=== PATIENT | male | born 1995 | race American Indian/Alaskan Native ===

== ENCOUNTER 2017-08-20 15:05 | Emergency (ER) | payer MEDICAID ==
[2017-08-20] MEDS ORDERED: Diphtheria,Pertussis(Acell),Tetanus Vaccine 0.5 ML SDV IM ONE (15:29)
[2017-08-20] MEDS ORDERED: Lidocaine 1% with EPINEPHrine 1:100,000 20 ML MDV INJECT ONE (15:29)
--- NOTE | 2017-08-20 15:44 | EDM.PDOC ---
ED HPI GENERAL MEDICAL PROBLEM - General Chief Complaint: Laceration Stated Complaint: [facility] Time Seen by Provider: 08/20/17 15:16 Source of Information: Reports: Patient History Limitations: Reports: No Limitations - History of Present Illness INITIAL COMMENTS - FREE TEXT/NARRATIVE: Patient is a 21-year-old male who presents ED via ambulance complaining of lacerations to the medial aspect of the right left forearm. This was self- induced utilizing a knife. Patient had been consuming alcohol quite heavily last night and does not recall cutting himself. States he consumed approx 12 pack of budlight. Denies any recreational drug use. Has no reason to why he did this. He does not have any suicidal/homicidal ideations or plans in place to commit suicide. He's never done this before in the past. Of note he does not drink alcohol on a daily basis states it is sporadic when he consumes alcohol. He was consuming alcohol with his girlfriend and notes that they had been arguing. Headache Pain Score (Numeric/FACES): 6 - Related Data Allergies Allergy/AdvReac Type Severity Reaction Status Date / Time amoxicillin Allergy Cannot Verified 08/20/17 15:11 Remember Penicillins Allergy Cannot Verified 08/20/17 15:11 Remember Home Meds: Home Meds . [No Known Home Meds] 08/20/17 [History] Past Medical History - Past Health History Medical/Surgical History: Denies Medical/Surgical History Social & Family History - Tobacco Use Smoking Status *Q: Never Smoker - Caffeine Use Caffeine Use: Reports: Soda - Recreational Drug Use Recreational Drug Use: No ED ROS GENERAL - Review of Systems Review Of Systems: See Below Constitutional: Denies: Fever, Chills Respiratory: Denies: Shortness of Breath, Cough, Sputum Cardiovascular: Denies: Chest Pain, Dyspnea on Exertion, Palpitations GI/Abdominal: Denies: Abdominal Pain, Nausea, Vomiting Musculoskeletal: Reports: Arm Pain (Localized to laceration sites) Neurological: Denies: Dizziness, Headache, Numbness, Tingling ED EXAM, SKIN/RASH Exam: See Below Exam Limited By: No Limitations General Appearance: Alert, WD/WN, No Apparent Distress Eye Exam: Bilateral Eye: EOMI, PERRL Ears: Hearing Grossly Normal Nose: Normal Inspection Throat/Mouth: Normal Voice, No Airway Compromise Neck: Normal Inspection, Supple Respiratory/Chest: No Respiratory Distress, Lungs Clear, Normal Breath Sounds, No Accessory Muscle Use Cardiovascular: Normal Peripheral Pulses, Regular Rate, Rhythm Peripheral Pulses: 2+: Radial (L), Radial (R) Extremities: Other (2 subcutaneous lacerations to the right medial forearm, bleeding controlled, length is approximately 4 cm deep. Noncontaminated. No bleeding present. Left forearm: Single subcutaneous laceration measuring approximately 4 cm to the medial aspect. Bleeding controlled. Dried blood present. No sensory/motor deficits distally.) Neurological: Alert, Oriented, CN II-XII Intact, No Motor/Sensory Deficits Psychiatric: Normal Affect, Normal Mood Skin: Warm, Dry, Normal Color ED SKIN PROCEDURES - Laceration/Wound Repair Left Medial Arm Lac/Wound length In cm: 5 Appearance: Superficial, Clean Distal NVT: Neuro & Vascular Intact Anesthetic Type: Local Local Anesthesia - Lidocaine (Xylocaine): 1% Plain Local Anesthetic Volume: 5cc Skin Prep: Chlorhexidine (Hibiciens), Saline, Sterile Drape Exploration/Debridement/Repair: Wound Explored, In a Bloodless Field, Explored to Base, No Foreign Material Found, Multiple Flaps Aligned Closed with: Sutures Suture Size: 4-0 # of Sutures: 8 Suture Type: Prolene, Interrupted, Simple Drain Placement: No Sterile Dressing Applied: Nurse Tetanus Status Addressed: Yes Complications: No Right Arm Lac/Wound length In cm: 5 Appearance: Subcutaneous, Clean Distal NVT: Neuro & Vascular Intact Anesthetic Type: Local Local Anesthesia - Lidocaine (Xylocaine): 1% Plain Local Anesthetic Volume: 5cc Skin Prep: Chlorhexidine (Hibiciens), Saline, Sterile Drape Exploration/Debridement/Repair: Wound Explored, In a Bloodless Field, Explored to Base, No Foreign Material Found Closed with: Sutures Suture Size: 4-0 # of Sutures: 7 Suture Type: Prolene, Interrupted, Simple Drain Placement: No Sterile Dressing Applied: Nurse Tetanus Status Addressed: Yes Complications: No Course - Vital Signs Last Recorded V/S: Last Vital Signs Temp 97.9 F 08/20/17 15:08 Pulse 63 08/20/17 15:08 Resp 16 08/20/17 15:08 BP 114/67 08/20/17 15:08 Pulse Ox 97 08/20/17 15:08 - Orders/Labs/Meds Orders: Active Orders 24 hr Category Date Time Status Vaccines to be Administered [RC] PER UNIT ROUTINE Care 08/20/17 15:29 Active Labs: Laboratory Tests 08/20/17 08/20/17 08/20/17 Range/Units 15:40 15:40 16:27 WBC 9.37 H (4.23-9.07) K/mm3 RBC 4.95 (4.63-6.08) M/mm3 Hgb 14.3 (13.7-17.5) gm/L Hct 42.2 (40.1-51.0) % MCV 85.3 (79.0-92.2) fl MCH 28.9 (25.7-32.2) pg MCHC 33.9 (32.2-35.5) g/dl RDW Std Deviation 39.1 (35.1-43.9) fL Plt Count 253 (163-337) K/mm3 MPV 10.6 (9.4-12.3) fl Neut % (Auto) 70.5 H (34.0-67.9) % Lymph % (Auto) 17.3 L (21.8-53.1) % Ashley % (Auto) 9.1 (5.3-12.2) % Eos % (Auto) 2.6 (0.8-7.0) Baso % (Auto) 0.4 (0.1-1.2) % Neut # (Auto) 6.61 H (1.78-5.38) K/mm3 Lymph # (Auto) 1.62 (1.32-3.57) K/mm3 Ashley # (Auto) 0.85 H (0.30-0.82) K/mm3 Eos # (Auto) 0.24 (0.04-0.54) K/mm3 Baso # (Auto) 0.04 (0.01-0.08) K/mm3 Sodium 146 H (136-145) mEq/L Potassium 4.4 (3.5-5.1) mEq/L Chloride 110 H (98-107) mEq/L Carbon Dioxide 23 (21-32) mEq/L Anion Gap 17.4 H (5-15) BUN 14 (7-18) mg/dL Creatinine 0.9 (0.7-1.3) mg/dL Est Cr Clr Drug Dosing 131.28 mL/min Estimated GFR (MDRD) > 60 (>60) mL/min BUN/Creatinine Ratio 15.6 (14-18) Glucose 77 (74-106) mg/dL Calcium 8.7 (8.5-10.1) mg/dL Total Bilirubin 0.7 (0.2-1.0) mg/dL AST 30 (15-37) U/L ALT 24 (16-63) U/L Alkaline Phosphatase 77 (46-116) U/L Total Protein 7.5 (6.4-8.2) g/dl Albumin 4.2 (3.4-5.0) g/dl Globulin 3.3 gm/dL Albumin/Globulin Ratio 1.3 (1-2) TSH 3rd Generation 0.452 L (0.516-4.13) uIU/mL Urine Color (Yellow) Urine Appearance (Clear) Urine pH (5.0-8.0) Ur Specific Willis (1.005-1.030) Urine Protein (Negative) Urine Glucose (UA) (Negative) Urine Ketones (Negative) Urine Occult Blood (Negative) Urine Nitrite (Negative) Urine Bilirubin (Negative) Urine Urobilinogen (0.2-1.0) Ur Leukocyte Esterase (Negative) Urine RBC (0-5) /hpf Urine WBC (0-5) /hpf Ur Epithelial Cells (0-5) /hpf Urine Bacteria (FEW) /hpf Urine Mucus (FEW) /hpf Urine Opiates Screen Negative (NEGATIVE) Ur Buprenorphine Scrn Negative (NEGATIVE) Ur Oxycodone Screen Negative (NEGATIVE) Urine Methadone Screen Negative (NEGATIVE) Ur Propoxyphene Screen Negative (NEGATIVE) Ur Barbiturates Screen Negative (NEGATIVE) Ur Tricyclics Screen Negative (NEGATIVE) Ur Phencyclidine Scrn Negative (NEGATIVE) Ur Amphetamine Screen Negative (NEGATIVE) U Methamphetamines Scrn Negative (NEGATIVE) U Benzodiazepines Scrn Negative (NEGATIVE) U Cocaine Metab Screen Negative (NEGATIVE) U Marijuana (THC) Screen Negative (NEGATIVE) Ethyl Alcohol 0.04 (0.00) gm% 08/20/17 Range/Units 16:27 WBC (4.23-9.07) K/mm3 RBC (4.63-6.08) M/mm3 Hgb (13.7-17.5) gm/L Hct (40.1-51.0) % MCV (79.0-92.2) fl MCH (25.7-32.2) pg MCHC (32.2-35.5) g/dl RDW Std Deviation (35.1-43.9) fL Plt Count (163-337) K/mm3 MPV (9.4-12.3) fl Neut % (Auto) (34.0-67.9) % Lymph % (Auto) (21.8-53.1) % Ashley % (Auto) (5.3-12.2) % Eos % (Auto) (0.8-7.0) Baso % (Auto) (0.1-1.2) % Neut # (Auto) (1.78-5.38) K/mm3 Lymph # (Auto) (1.32-3.57) K/mm3 Ashley # (Auto) (0.30-0.82) K/mm3 Eos # (Auto) (0.04-0.54) K/mm3 Baso # (Auto) (0.01-0.08) K/mm3 Sodium (136-145) mEq/L Potassium (3.5-5.1) mEq/L Chloride (98-107) mEq/L Carbon Dioxide (21-32) mEq/L Anion Gap (5-15) BUN (7-18) mg/dL Creatinine (0.7-1.3) mg/dL Est Cr Clr Drug Dosing mL/min Estimated GFR (MDRD) (>60) mL/min BUN/Creatinine Ratio (14-18) Glucose (74-106) mg/dL Calcium (8.5-10.1) mg/dL Total Bilirubin (0.2-1.0) mg/dL AST (15-37) U/L ALT (16-63) U/L Alkaline Phosphatase (46-116) U/L Total Protein (6.4-8.2) g/dl Albumin (3.4-5.0) g/dl Globulin gm/dL Albumin/Globulin Ratio (1-2) TSH 3rd Generation (0.516-4.13) uIU/mL Urine Color Yellow (Yellow) Urine Appearance Clear (Clear) Urine pH 6.0 (5.0-8.0) Ur Specific Willis 1.025 (1.005-1.030) Urine Protein Negative (Negative) Urine Glucose (UA) Negative (Negative) Urine Ketones 1+ H (Negative) Urine Occult Blood Negative (Negative) Urine Nitrite Negative (Negative) Urine Bilirubin Negative (Negative) Urine Urobilinogen 0.2 (0.2-1.0) Ur Leukocyte Esterase Negative (Negative) Urine RBC 0-5 (0-5) /hpf Urine WBC 0-5 (0-5) /hpf Ur Epithelial Cells 0-5 (0-5) /hpf Urine Bacteria Not seen (FEW) /hpf Urine Mucus Few (FEW) /hpf Urine Opiates Screen (NEGATIVE) Ur Buprenorphine Scrn (NEGATIVE) Ur Oxycodone Screen (NEGATIVE) Urine Methadone Screen (NEGATIVE) Ur Propoxyphene Screen (NEGATIVE) Ur Barbiturates Screen (NEGATIVE) Ur Tricyclics Screen (NEGATIVE) Ur Phencyclidine Scrn (NEGATIVE) Ur Amphetamine Screen (NEGATIVE) U Methamphetamines Scrn (NEGATIVE) U Benzodiazepines Scrn (NEGATIVE) U Cocaine Metab Screen (NEGATIVE) U Marijuana (THC) Screen (NEGATIVE) Ethyl Alcohol (0.00) gm% Meds: Medications Discontinued Medications Generic Name Dose Route Start Last Admin Trade Name Tabatha PRN Reason Stop Dose Admin Diphtheria/Tetanus/Acell Pertussis 0.5 ml 08/20/17 15:29 08/20/17 15:48 Adacel IM 08/20/17 15:30 0.5 ml .ONCE ONE Administration Lidocaine/Epinephrine 20 ml 08/20/17 15:29 08/20/17 16:22 Xylocaine 1% With Epinephrine 1:100,000 INJECT 08/20/17 15:30 20 ml ONETIME ONE Administration - Re-Assessments/Exams Free Text/Narrative Re-Assessment/Exam: Unclear why patient cut himself. He was per patient blacked out drunk. Currently has no suicidal or homicidal ideations. He has no plan in place. No prior history of suicide attempt. He is alert and oriented answering all questions appropriately. Will obtain basic labs including a CBC, chem 14, urine drug tox, serum EtOH, TSH , UA . In addition ordered lidocaine with 1% epi and also Adacel 0.5 mL IM to update his tetanus. Labs reviewed: White blood cell count 9.37, hemoglobin 14.3, platelet count 253 , sodium 146, potassium 4.4, AG 17.4, CR 0.9, glucose 77, LFTs within normal limits, TSH is 0.452, UA clean, urine drug tox negative. Serum EtOH 0.04. 10/15/17 17:39 Lacerations to the left and right forearm closed with simple sutures. Laceration proximal to the right wrist closed with Steri-Strips no sutures required. Discharge instructions as documented. Departure - Departure Time of Disposition: 17:57 Disposition: Home, Self-Care 01 Condition: Good Clinical Impression: Forearm laceration Qualifiers: Encounter type: initial encounter Laterality: unspecified laterality Qualified Code(s): S51.819A - Laceration without foreign body of unspecified forearm, initial encounter - Discharge Information Instructions: Laceration Care, Adult, [id number], Stitches, [place], or Adhesive Wound Closure, [id number] Referrals: PCP,None [Primary Care Provider] - Forms: ED Department Discharge Additional Instructions: Cleanse sites twice daily with soap and water, pat dry, reapply Triple Antibiotic ointment, and dressing. Keep area clean and dry. Follow-up with a provider in 10 days at [facility] for suture removal. Return to ED for any worsening symptoms. Refrain from consuming alcohol and cutting yourself. Suggest establishing care at [facility] in [place] as well. - My Orders Last 24 Hours: My Active Orders 08/20/17 15:29 Vaccines to be Administered [RC] PER UNIT ROUTINE - Assessment/Plan Last 24 Hours: My Active Orders 08/20/17 15:29 Vaccines to be Administered [RC] PER UNIT ROUTINE
== END 2017-08-20 18:12 | disposition home or self-care (01) ==
LOC: JD.ED 15:05
DX: S51.811A Laceration without foreign body of right forearm, initial encounter (principal); Z23 Encounter for immunization; Z88.1 Allergy status to other antibiotic agents; Z88.0 Allergy status to penicillin; W26.0XXA Contact with knife, initial encounter
CPT/HCPCS: 12004; 36415; 80053; 80306; 81001; 84443; 85025; 90471; 90715; 99284; G0480; 12002; 99282-25

== ENCOUNTER 2017-10-28 18:17 | Emergency (ER) | payer MEDICAID ==
--- NOTE | 2017-10-28 18:32 | EDM.PDOC ---
ED HPI GENERAL MEDICAL PROBLEM - General Chief Complaint: General Stated Complaint: ABCESS TOOTH Time Seen by Provider: 10/28/17 18:32 Source of Information: Reports: Patient History Limitations: Reports: No Limitations - History of Present Illness INITIAL COMMENTS - FREE TEXT/NARRATIVE: Patient is a 22-year-old male presents ED complaining of pain to the right lower wisdom tooth is coming in. Pain started a few days ago as risk getting worse. There is concern of possible infection present. Patient does admit to not brushing his teeth on a regular basis. Does not see a dentist on a regular basis as well. Denies any increased swelling to his gum line, nausea/vomiting, fever, difficulty swallowing,or any additional complaint. Treatments TRANSPORTATION SECURITY SCREENER: Reports: Acetaminophen, NSAIDS Tooth/Teeth Pain Score (Numeric/FACES): 3 - Related Data Allergies Allergy/AdvReac Type Severity Reaction Status Date / Time amoxicillin Allergy Cannot Verified 10/28/17 18:24 Remember Penicillins Allergy Cannot Verified 10/28/17 18:24 Remember seafoo Allergy Airway Uncoded 10/28/17 18:24 Tightness Home Meds: Home Meds . [No Known Home Meds] 08/20/17 [History] Past Medical History - Past Health History Medical/Surgical History: Denies Medical/Surgical History Social & Family History - Tobacco Use Smoking Status *Q: Never Smoker - Caffeine Use Caffeine Use: Reports: Soda - Recreational Drug Use Recreational Drug Use: No ED ROS GENERAL - Review of Systems Review Of Systems: ROS reveals no pertinent complaints other than HPI. ED EXAM, GENERAL - Physical Exam Exam: See Below Exam Limited By: No Limitations General Appearance: Alert, WD/WN, No Apparent Distress Ears: Hearing Grossly Normal Nose: Normal Inspection Throat/Mouth: Normal Voice, No Airway Compromise, Other (tenderness noted to the right lower wasn't too that's breaking through the skin. No swelling to the gumline noted. No swelling to the cheek noted. Pain is localized to the affected tooth. Of note patient does have poor dental hygiene with plaque present 2 most teeth.) Neck: Normal Inspection Respiratory/Chest: No Respiratory Distress, No Accessory Muscle Use Cardiovascular: Normal Peripheral Pulses, Regular Rate, Rhythm Neurological: Alert, Oriented, CN II-XII Intact, Normal Cognition, No Motor/ Sensory Deficits Psychiatric: Normal Affect, Normal Mood Skin Exam: Warm, Dry, Intact, Normal Color Course - Vital Signs Last Recorded V/S: Last Vital Signs Temp 97.8 F 10/28/17 18:25 Pulse 95 10/28/17 18:25 Resp 16 10/28/17 18:25 BP 120/72 10/28/17 18:25 Pulse Ox 99 10/28/17 18:25 - Re-Assessments/Exams Free Text/Narrative Re-Assessment/Exam: performed an inferior alveolar dental block with 0.5% bupivacaine with immediate relief of pain. We'll not prescribe any antibiotics at this time. Do not believe an abscess is present. Will have the patient follow-up with a dentist to determine definitive treatment required. Suspect he will have to see A oral surgeon to have the wasn't tooth removed. Discharge instructions as Dr. Molina - Departure Time of Disposition: 18:48 Disposition: Home, Self-Care 01 Condition: Good Clinical Impression: Tooth pain with chewing - Discharge Information Referrals: PCP,None [Primary Care Provider] - Forms: ED Department Discharge Additional Instructions: Take Tylenol 650 mg every 6 hours and ibuprofen 600 mg every 6 hours in alternating fashion for pain. Do not chew on the affected side. Can use over-the -counter oral gel as needed for discomfort. Call and make an appointment with a dentist to determine definitive treatment. Suspect you will have to be seen by a oral surgeon to have that wisdom tooth removed. Return back to the ED as needed for any new or worsening symptoms. BRUSH AND FLOSS YOUR TEETH TWICE DAILY TO PREVENT FURTHER DENTAL DECAY.
== END 2017-10-28 18:54 | disposition home or self-care (01) ==
LOC: JD.ED 18:17
DX: K08.89 Other specified disorders of teeth and supporting structures (principal); Z88.1 Allergy status to other antibiotic agents; Z88.0 Allergy status to penicillin; Z91.040 Latex allergy status
CPT/HCPCS: 99282; 99283

== ENCOUNTER 2018-11-12 00:19 | Emergency (ER) | payer MEDICAID ==
--- NOTE | 2018-11-12 00:39 | EDM.PDOC ---
ED HPI GENERAL MEDICAL PROBLEM - General Chief Complaint: Lower Extremity Injury/Pain Stated Complaint: RIGHT TOE INJURY PURPLE Time Seen by Provider: 11/12/18 00:35 - History of Present Illness INITIAL COMMENTS - FREE TEXT/NARRATIVE: 23-year-old male presents emergency room with a right toe injury. Patient dropped an Xbox control on second toe of his right foot. He has pain and swelling in his toes started to turn purple. He denies numbness or tingling has some mild discomfort when he ambulates. Patient denies any other injuries. He is up-to-date on his tetanus, last tetanus was 2 years ago. Right 4-Ring toe Pain Score (Numeric/FACES): 3 - Related Data Allergies Allergy/AdvReac Type Severity Reaction Status Date / Time amoxicillin Allergy Cannot Verified 11/12/18 00:32 Remember Penicillins Allergy Cannot Verified 11/12/18 00:32 Remember seafoo Allergy Airway Uncoded 11/12/18 00:32 Tightness Home Meds: Home Meds . [No Known Home Meds] 08/20/17 [History] Past Medical History - Past Health History Medical/Surgical History: Denies Medical/Surgical History Social & Family History - Family History Family Medical History: Noncontributory - Tobacco Use Smoking Status *Q: Current Some Day Smoker Years of Tobacco use: 6 Packs/Tins Daily: 0 - Caffeine Use Caffeine Use: Reports: Coffee, Soda, Tea - Recreational Drug Use Recreational Drug Use: No Review of Systems - Review of Systems Review Of Systems: See Below Constitutional: Reports: No Symptoms Respiratory: Reports: No Symptoms Cardiovascular: Reports: No Symptoms GI/Abdominal: Reports: No Symptoms ED EXAM, GENERAL - Physical Exam Exam: See Below Exam Limited By: No Limitations General Appearance: Alert, No Apparent Distress Respiratory/Chest: No Respiratory Distress, Lungs Clear, Normal Breath Sounds Cardiovascular: Regular Rate, Rhythm, No Edema, No Murmur Extremities: Other (Semination his right foot reveals a fairly normal-looking foot except the distal end of his second toe which is swollen slightly developing ecchymotic changes and he has a very superficial laceration over the dorsum this is a superficial skin flap with no through dermal extension. Neurovascular status of the toe is otherwise unremarkable it is tender) Course - Vital Signs Last Recorded V/S: Last Vital Signs Temp 37.2 C 11/12/18 00:25 Pulse 102 H 11/12/18 00:25 Resp 18 11/12/18 00:25 BP 119/69 11/12/18 00:25 Pulse Ox 94 L 11/12/18 00:25 - Orders/Labs/Meds Orders: Active Orders 24 hr Category Date Time Status Toes Second Digit Rt T6 [CR] Stat Exams 11/12/18 00:45 Taken Meds: Medications Discontinued Medications Generic Name Dose Route Start Last Admin Trade Name Tabatha PRN Reason Stop Dose Admin Acetaminophen 650 mg 11/12/18 00:44 Tylenol PO 11/12/18 00:45 ONETIME ONE - Re-Assessments/Exams Free Text/Narrative Re-Assessment/Exam: 11/12/18 01:15 X-ray examination of the toe is unremarkable for fracture dislocation. The patient will nonetheless have this toe tawanna taped to his great toe for comfort put some bacitracin over the very superficial laceration and a bandage over this Departure - Departure Time of Disposition: 01:16 Disposition: Home, Self-Care 01 Clinical Impression: Contusion of second toe of right foot - Discharge Information Referrals: PCP,None [Primary Care Provider] - Forms: ED Department Discharge Additional Instructions: Return to the emergency room with any questions problems worsening symptoms. Follow-up with your regular doctor as needed. Tylenol and/or Motrin as needed for discomfort. Tawanna tape your toe to the big toe as needed for comfort. - My Orders Last 24 Hours: My Active Orders 11/12/18 00:45 Toes Second Digit Rt T6 [CR] Stat - Assessment/Plan Last 24 Hours: My Active Orders 11/12/18 00:45 Toes Second Digit Rt T6 [CR] Stat
[2018-11-12] MEDS ORDERED: Acetaminophen Soln 650 MG/20.3 ML UD Cup PO ONE (00:44)
--- NOTE | 2018-11-12 06:38 | CR ---
Right second toe: Three views centered to the right second toe were obtained. Joint spaces are preserved. No fracture, dislocation or other bony abnormality is seen. Impression: 1. No abnormality is appreciated on right second toe study. Diagnostic code #1
== END 2018-11-12 01:26 | disposition home or self-care (01) ==
LOC: JD.ED 00:19
DX: S90.121A Contusion of right lesser toe(s) without damage to nail, initial encounter (principal); F17.200 Nicotine dependence, unspecified, uncomplicated; Z88.0 Allergy status to penicillin; Z88.1 Allergy status to other antibiotic agents; Z91.013 Allergy to seafood; W20.8XXA Other cause of strike by thrown, projected or falling object, initial encounter
CPT/HCPCS: 73660; 99283; A9270; 99282

== ENCOUNTER 2020-12-30 08:33 | Emergency (ER) | payer SELFPAY ==
--- NOTE | 2020-12-30 09:08 | EDM.PDOC ---
ED HPI GENERAL MEDICAL PROBLEM - General Chief Complaint: General Stated Complaint: [facility] Time Seen by Provider: 12/30/20 08:38 Source of Information: Reports: Patient, RN Notes Reviewed History Limitations: Reports: No Limitations - History of Present Illness INITIAL COMMENTS - FREE TEXT/NARRATIVE: Patient is a 25-year-old male presenting to the emergency department with complaints of left chest wall pain after sustaining a fall at home. States that he recently got up for 2-week stretch at work. He drank 5 beers this morning upon getting home. He was changing out the laundry and slipped on a dryer sheet landing on his left side. Complains of pain proximally 2 inches below his left nipple. Denies any significant shortness of breath, but states it hurts for him to take a deep breath or cough. Left Trunk Pain Score (Numeric/FACES): 5 - Related Data Allergies Allergy/AdvReac Type Severity Reaction Status Date / Time amoxicillin Allergy Cannot Verified 12/30/20 08:40 Remember Penicillins Allergy Cannot Verified 12/30/20 08:40 Remember seafoo Allergy Airway Uncoded 11/12/18 00:32 Tightness Home Meds: Home Meds . [No Known Home Meds] 08/20/17 [History] Past Medical History - Past Health History Medical/Surgical History: Denies Medical/Surgical History HEENT History: Reports: Impaired Vision Cardiovascular History: Reports: None Respiratory History: Reports: Bronchitis, Recurrent Gastrointestinal History: Reports: None Genitourinary History: Reports: None Musculoskeletal History: Reports: None Neurological History: Reports: Concussion Psychiatric History: Reports: None Endocrine/Metabolic History: Reports: None Hematologic History: Reports: None Immunologic History: Reports: None Oncologic (Cancer) History: Reports: None Dermatologic History: Reports: None - Infectious Disease History Infectious Disease History: Reports: None - Past Surgical History Head Surgeries/Procedures: Reports: None HEENT Surgical History: Reports: Oral Surgery GI Surgical History: Reports: None Musculoskeletal Surgical History: Reports: None Social & Family History - Family History Family Medical History: No Pertinent Family History - Tobacco Use Tobacco Use Status *Q: Current Every Day Tobacco User Years of Tobacco use: 1 Packs/Tins Daily: 0.5 - Caffeine Use Caffeine Use: Reports: Coffee, Energy Drinks, Soda - Recreational Drug Use Recreational Drug Use: No ED ROS GENERAL - Review of Systems Review Of Systems: See Below Constitutional: Reports: No Symptoms HEENT: Reports: No Symptoms Respiratory: Reports: Other (Pain with deep breathing, left chest wall pain.) Cardiovascular: Reports: No Symptoms Endocrine: Reports: No Symptoms GI/Abdominal: Reports: No Symptoms : Reports: No Symptoms Musculoskeletal: Reports: No Symptoms. Denies: Back Pain Skin: Reports: No Symptoms Neurological: Reports: No Symptoms Psychiatric: Reports: No Symptoms Hematologic/Lymphatic: Reports: No Symptoms Immunologic: Reports: No Symptoms ED EXAM, GENERAL - Physical Exam Exam: See Below Exam Limited By: No Limitations General Appearance: Alert, WD/WN, No Apparent Distress Respiratory/Chest: No Respiratory Distress, Lungs Clear, Normal Breath Sounds, No Accessory Muscle Use, Other (Tenderness to palpation of the left anterior chest wall beneath the left nipple. No step-offs or deformity noted.) Cardiovascular: Normal Peripheral Pulses, Regular Rate, Rhythm, No Edema, No Gallop, No JVD, No Murmur, No Rub GI/Abdominal: Normal Bowel Sounds, Soft, Non-Tender, No Organomegaly, No Distention, No Abnormal Bruit, No Mass Neurological: Alert, Oriented, CN II-XII Intact, Normal Cognition, Normal Gait, Normal Reflexes, No Motor/Sensory Deficits Psychiatric: Normal Affect, Normal Mood Skin Exam: Warm, Dry, Intact, Normal Color, No Rash Course - Vital Signs Last Recorded V/S: Last Vital Signs Temp 96.9 F 12/30/20 08:42 Pulse 71 12/30/20 08:42 Resp 16 12/30/20 08:42 BP 135/86 12/30/20 08:42 Pulse Ox 100 12/30/20 08:42 - Re-Assessments/Exams Free Text/Narrative Re-Assessment/Exam: Patient is a 25-year-old male presenting to the emergency department with complaints of left anterior chest wall pain after falling at home. He denies any states it is increasingly painful if he coughs or takes a deep breath. On exam, patient does have tenderness palpation possibly 2 inches below the left nipple. There is no step-offs or deformity noted. I have ordered a left rib x- ray. 12/30/20 09:46 Left rib x-ray shows no acute abnormalities. Recommend ice and ibuprofen as needed. Discharge instructions as documented. Departure - Departure Time of Disposition: 09:47 Disposition: Home, Self-Care 01 Condition: Good Clinical Impression: Contusion of left chest wall Qualifiers: Encounter type: initial encounter Qualified Code(s): S20.212A - Contusion of left front wall of thorax, initial encounter - Discharge Information *PRESCRIPTION DRUG MONITORING PROGRAM REVIEWED*: No *COPY OF PRESCRIPTION DRUG MONITORING REPORT IN PATIENT KAROLYN: No Instructions: Contusion, [id number] Forms: ED Department Discharge Additional Instructions: You were seen in the emergency department today for pain to her left chest wall after falling at home. X-rays were completed and showed no abnormalities. There is no obvious rib fractures and your lung is normal. As we discussed, you have likely contused (bruised) your chest wall. Recommend intermittent ice to the area. You may use [id number] Tylenol and ibuprofen as needed. Return to ER as needed. Sepsis Event Note (ED) - Evaluation Sepsis Screening Result: No Definite Risk - Focused Exam Vital Signs: Vital Signs Temp Pulse Resp BP Pulse Ox 12/30/20 08:42 96.9 F 71 16 135/86 100
--- NOTE | 2020-12-30 09:36 | CR ---
Chest and left ribs: Frontal view of the chest was obtained as well as 4 views of the left ribs. Comparison: No prior chest imaging is available. Heart size and mediastinum are normal. Lungs are clear with no acute parenchymal change. No discrete fracture or other left-sided rib abnormality is appreciated. Impression: 1. No discrete left-sided rib abnormality. 2. Nothing acute is seen on frontal chest x-ray. Diagnostic code #1
== END 2020-12-30 09:55 | disposition home or self-care (01) ==
LOC: JD.ED 08:33
DX: S20.212A Contusion of left front wall of thorax, initial encounter (principal); Z88.0 Allergy status to penicillin; Z91.013 Allergy to seafood; Z72.0 Tobacco use; W19.XXXA Unspecified fall, initial encounter
CPT/HCPCS: 71101-26-LT; 71101-LT; 99282; 99284-25